=== PATIENT | female | born 1990 | race Caucasian/White ===

== ENCOUNTER 2018-11-15 16:23 | Emergency (ER) | payer OTHER ==
[~2018-11-15] VITALS: Ht 160 cm; Wt 150.0 kg
[2018-11-15 16:30] VITALS: BP 167/84; TEMP 97.9
[2018-11-15] MEDS ORDERED: MASON NATURAL2000 IU (16:30)
[2018-11-15] MEDS ORDERED: SYNTHROID 0.0.025 MG PO (16:30)
[2018-11-15 17:25] VITALS: PULSE 93
== END 2018-11-15 17:24 | disposition home or self-care (01) ==
LOC: COL.ER 16:23
DX: S43.401A Unspecified sprain of right shoulder joint, initial encounter (principal); S80.02XA Contusion of left knee, initial encounter; S80.01XA Contusion of right knee, initial encounter; E03.9 Hypothyroidism, unspecified; W01.0XXA Fall on same level from slipping, tripping and stumbling without subsequent striking against object, initial encounter; Y92.59 Other trade areas as the place of occurrence of the external cause

== ENCOUNTER 2018-11-21 09:49 | Outpatient (RCR) | payer OTHER ==
[~2018-11-21 09:49] MED LIST: MASON NATURAL2000 IU; SYNTHROID 0.0.025 MG PO
== END 2019-02-19 | disposition still patient (30) ==
LOC: WSOH
DX: S80.01XA Contusion of right knee, initial encounter (principal); S80.02XA Contusion of left knee, initial encounter; E07.9 Disorder of thyroid, unspecified; E28.2 Polycystic ovarian syndrome; Z98.890 Other specified postprocedural states; W01.0XXA Fall on same level from slipping, tripping and stumbling without subsequent striking against object, initial encounter